=== PATIENT | male | born 1960 | race Caucasian/White ===

== ENCOUNTER 2017-07-28 18:51 | Inpatient (IN) | payer OTHER ==
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
[2017-07-28] MEDS ORDERED: HYDROmorphONE/DILAUDID 2 MG/ML INJ IVP ONE (19:27)
[2017-07-28 19:33] LABS: PLATELET COUNT 262 10^3/uL (150-400)
[2017-07-28] MEDS ORDERED: NS 1,000 ML IV ONE (19:41)
[2017-07-28] MEDS ORDERED: IOPAMIDOL (ISOVUE-300) 100 ML BTL ONE (19:50)
[2017-07-28 19:55] LABS: INR 0.92 (0.83-1.16); PROTIME(PATIENT) 12.6 SEC (12.0-15.0)
[2017-07-28] MEDS ORDERED: TDAP ADULT 0.5 ML INJ (BOOSTRIX) IM ONE (20:58)
[2017-07-28] MEDS ORDERED: ACETAMINOPHEN 500 MG TAB PO ONE (21:17)
[2017-07-28] MEDS ORDERED: LIDOCAINE 4%/MENTHOL 1% PATCH TD ONE (21:18)
[2017-07-28] MEDS ORDERED: KETOROLAC 30 MG/1 ML SDV IVP ONE (21:18)
[2017-07-28] MEDS ORDERED: ONDANSETRON 4 MG/2 ML VIAL IVP PRN (21:43)
--- NOTE | 2017-07-28 21:43 | POSTOPPROG ---
Post Op Note Date of Operation: 07/28/17 Surgeon: Christ Chirinos Anesthesia: Local (Specify), Spinal (1% lidocaine, 8cc) Pre-op Diagnosis: Left Traumatic PTX Post-op Diagnosis: Resolution of PTX Indication: Left Traumatic PTX Procedure: Placement of PTX tube Findings: Resolution of PTX Inf/Abcess present in the surg proc area at time of surgery?: No Complications: none Specimen(s): none
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
--- NOTE | 2017-07-28 22:15 | GOP ---
[f rep st] OPERATIVE REPORT DATE OF OPERATION: 07/28/2017 SURGEON: Christ Chirinos MD PREOPERATIVE DIAGNOSIS: Traumatic left pneumothorax. POSTOPERATIVE DIAGNOSIS: Resolution of traumatic left pneumothorax. PROCEDURE PERFORMED: Placement of pneumothorax tube. FINDINGS: Resolution of left traumatic pneumothorax. INDICATIONS: Left traumatic pneumothorax. DESCRIPTION OF PROCEDURE: Patient was placed in the [facility] in the seated position at 45 degrees. The left chest was carefully clipped, prepped, and draped. The consent had been obtained. A surgic al time-out was carried out. The chest was now prepped and draped. The skin was anesthetized. The entrance was placed more later ally because of the potential need for an incision because of the posterior dislocation of the left c lavicle. The skin was anesthetized with 1% Xylocaine. Deep tissue was anesthetized. Coursing over the top of the 2nd rib, the chest was entered. Lidocaine was squirted into the chest as well. The s kin was incised. The pneumothorax tube was carefully guided into the chest. It was secured at the s kin level with a suture of #2-0 silk. The Heimlich valve was connected to it, and the Heimlich valve was then connected to the Pleur-evac. The chest tube was secured to the chest wall. Medium-sized T egaderm dressings were placed. Followup chest x-ray showed the lung to be completely expanded. The patient tolerated the procedure well. COMPLICATIONS: None. /[id number]/MODL
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
[2017-07-28] MEDS ORDERED: BUPIVACAINE/EPI 0.5% 30 ML SDV ONE (22:25)
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
[2017-07-28] MEDS ORDERED: LR 1,000 ML IV ONE (22:41)
[2017-07-28] MEDS ORDERED: SUCCINYLCHOLINE CHLORIDE 200 MG/10 ML SYR IVP ONE ×2 (22:54→22:57)
[2017-07-28] MEDS ORDERED: DEXAMETHASONE 4 MG/ML VIAL ONE (22:54)
[2017-07-28] MEDS ORDERED: LIDOCAINE 2% 5 ML SDV ONE (22:54)
[2017-07-28] MEDS ORDERED: ROCURONIUM 50 MG/5 ML VIAL ONE (22:54)
[2017-07-28] MEDS ORDERED: PROPOFOL/EMULSION 500 MG/50 ML BOTTLE IV ONE (22:55)
[2017-07-28] MEDS ORDERED: ceFAZolin 2 GM/DEXTROSE 100 ML IV ONE (23:30)
[2017-07-28] MEDS ORDERED: NEOSTIGMINE METHYLSULFATE 10 MG/10 ML MDV ONE (23:47)
--- NOTE | 2017-07-28 23:57 | POSTOPPROG ---
Post Op Note Date of Operation: 07/28/17 Surgeon: Rommel Collier Studio Technician Video Operator: Dr. Chirinos Anesthesia: GET(General Endotracheal) Pre-op Diagnosis: Left sternoclavicular dislocation Post-op Diagnosis: Same Procedure: Closed reduction of Left sternoclavicular dislocation under anesthesia Inf/Abcess present in the surg proc area at time of surgery?: No EBL: None
[2017-07-29] MEDS ORDERED: DIAZEPAM 5 MG/ML 1 ML SYR IVP PRN (00:07)
[2017-07-29] MEDS ORDERED: NALOXONE HCL 0.4 MG/ML INJ IVP PRN (00:07)
[2017-07-29] MEDS ORDERED: oxyCODONE IR 5 MG TAB PO PRN (00:07)
[2017-07-29] MEDS ORDERED: PROMETHAZINE HCL 25 MG/ML INJ IVP PRN (00:07)
--- NOTE | 2017-07-29 00:09 | POSTANESTH ---
Post Anesthetic Evaluation Cardiovascular Status: Normal, Stable Respiratory Status: Normal, Stable Level of Consciousness/Mental Status: Can Participate in Eval, Mildly Sleepy, Arousable Pain Control: Adequate, Prn Tx Ordered Nausea/Vomiting Control: Adequate, Prn Tx Ordered Complications Possibly Related to Anesthesia: None Noted
[2017-07-29] MEDS: ACETAMINOPHEN 500 MG TAB PO SCH ×4 (02:18→22:42)
[2017-07-29] MEDS: CYCLOBENZAPRINE 10 MG TAB PO SCH ×4 (02:19→22:42)
[2017-07-29] MEDS: BACITRACIN ZINC 14.2 GM OINTTUBE TP SCH ×3 (02:19→21:11)
[2017-07-29] MEDS: MIRTAZAPINE 30 MG TAB PO SCH (03:06)
[2017-07-29] MEDS: CHOLECALCIFEROL VIT D3 1,000 UNITS TAB PO SCH (03:12)
[2017-07-29] MEDS: VITAMIN B COMPLEX 1 EA CAP/TAB PO SCH (03:12)
[2017-07-29] MEDS: KETOROLAC 30 MG/1 ML SDV IVP SCH ×4 (06:14→18:09)
[2017-07-29 06:48] LABS: PLATELET COUNT 196 10^3/uL (150-400)
--- NOTE | 2017-07-29 08:09 | PDMN ---
Medical Necessity Medical necessity: MCG M500 pneumothorax- traumatic pneumothorax req CT placement, M545 rib fractures, 3 or more traumatic rib fxs.. A-2 days
[2017-07-29] MEDS ORDERED: PATCH REMOVAL 1 EA PATCH TD SCH (09:00)
--- NOTE | 2017-07-29 09:07 | WOCRNPDOC ---
WOCRN Advanced Assessment Note - Skin Integrity Problem, Advanced Assess Right Elbow Abrasion Dressing Type: Adaptic Touch, Kaci, Non-Bordered Foam (Mepilex) Dressing Description: Not Intact Exudate Amount: Minimal Exudate Color: Reddish/Yellow Exudate Characteristic(s): Serosanguinous, Thick Integumentary Issue Intervention: Visualized Under Dressing Mojgan Wound Swelling: None Wound Bed Color: Villard, Red Wound Bed Constitution: Red/Villard - Non Granular Tissue Site Odor: None Skin Integrity Problem Comment: Visualized under existing dressing. Partial- thickness abrasion noted to R lateral elbow, superficial, no periwound erythema or swelling. Will have nursing apply protective dressing. No need for urologist physician to follow ongoing. Right Anterior Knee Abrasion Dressing Type: Open to Air Exudate Color: Brown Exudate Characteristic(s): Dried Mojgan Wound Tissue: Intact Mojgan Wound Swelling: None Wound Bed Color: Brown, Red Wound Bed Constitution: Red/Villard - Non Granular Tissue, Scab Skin Integrity Problem Comment: Superficial, partial-thickness abrasion noted on R lower proximal leg, mix of scab and smooth, non-granulating tissue. No periwound swelling or erythema. Will have nursing apply protective dressing. No need for Wound RN to follow ongoing. Left Shoulder Abrasion Dressing Type: Open to Air Exudate Amount: None Mojgan Wound Tissue: Intact Mojgan Wound Swelling: None Wound Bed Color: Red Wound Bed Constitution: Red/Villard - Non Granular Tissue, Scab Skin Integrity Problem Comment: Superficial abrasion noted to L posterior shoulder, a mix of scab and non-granulating tissue. Will have nursing apply protective dressing. No need for wound RN to follow.
[2017-07-29] MEDS: PATCH REMOVAL 1 EA PATCH TD SCH (09:10)
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
[2017-07-29] MEDS: HYDROmorphONE/DILAUDID 1 MG/ML INJ IVP PRN ×2 (10:52→16:50)
[2017-07-29] MEDS ORDERED: NS 1,000 ML IV SCH (16:30)
[2017-07-29] MEDS ORDERED: LIDOCAINE 2% JELLY 20 ML (UROJECT) UR ONE (16:30)
--- NOTE | 2017-07-29 19:28 | TRAUMAPNT ---
Trauma Tertiary Progress Note New Findings: No new findings but reduction of posteriorly displaced left sterno -clavicular joint has failed partially Assessment/Plan: POD/PAD#1 Assessment: Pleurovac tube was crimped this am and a small PTX was noted. Suction optimized. F/U CXR in AM Follow up CT of sternoclavicular joint demonstrates partial loss of reduction He had difficulty voiding today. First attempt to place lay was unsuccessful. Second attempt successful Plan: Dr. Collier to review CT and decide if/when to return to surgery for reduction/ fixation F/u CXR re: PTX in AM Subjective: Pain control is acceptable Objective: Vital Signs Temp Pulse Resp BP Pulse Ox 36.9 C 52 L 11 L 97/58 L 96 07/29/17 16:00 07/29/17 16:00 07/29/17 16:00 07/29/17 16:00 07/29/17 16:00 Laboratory Results 07/29/17 06:25 07/29/17 06:25 07/28/17 07/29/17 07/30/17 05:59 05:59 05:59 Intake Total 2100 763 Output Total 0 700 Balance 2100 63 PT 12.6 SEC (12.0-15.0) 07/28/17 18:30 INR 0.92 (0.83-1.16) 07/28/17 18:30 - C-Spine Clearance Cervical Spine Cleared: Yes Provider who Cleared Cervical Spine: Candis Physical Exam - Physical Exam General Appearance: alert, no apparent distress Neck: full range of motion, supple, normal inspection, other (left clavicular head is located posteriorly and is tender) Respiratory: lungs clear, normal breath sounds, respiratory distress Cardiac/Chest: regular rate, rhythm Abdomen: normal bowel sounds, non-tender, soft Male Genitalia: deferred Rectal: deferred Back: Normal inspection Skin: normal color, warm/dry Extremities: other (left upper extremity in immobilizer) Neuro/Psych: no motor/sensory deficits, alert, normal mood/affect, oriented x 3 Time Spent w/Patient (minutes): 25
[2017-07-29] MEDS: LIDOCAINE 4%/MENTHOL 1% PATCH TD SCH (21:12)
--- NOTE | 2017-07-29 23:23 | PDANEPAE ---
ANE Past Medical History - Cardiovascular History Hx Hypertension: No Hx Arrhythmias: No Hx Chest Pain: No Hx Coronary Artery / Peripheral Vascular Disease: No - Pulmonary History Hx COPD: No Hx Asthma/Reactive Airway Disease: No Hx Oxygen in Use at Home: No Hx Sleep Apnea: No Sleep Apnea Screening Result - Last Documented: Negative - Endocrine History Hx Diabetes: No Hypothyroid: No Obesity: no - Neurological & Psychiatric Hx Hx Neurological and Psychiatric Disorders: Yes Neurological / Psychiatric History Comment: depression - GI History GERD: no - Chronic Pain History Chronic Pain: No ANE Review of Systems Review of Systems: ANE Patient History - Allergies Allergies/Adverse Reactions: No Known Allergies Allergy (Unverified 07/28/17 18:55) - Home Medications Home Medications: Cholecalciferol Vit D3 [Vitamin D3 (*)] 1,000 units PO DAILY@39907/28/17 [ Last Taken 07/26/17] Mirtazapine 30 mg PO DAILY@39907/28/17 [Last Taken 07/28/17 04:00] Vitamin B Complex [Vitamin B Complex (OTC)] 1 each PO DAILY@39907/28/17 [Last Taken 07/26/17] - NPO status NPO Since - Liquids (Date): 07/29/17 NPO Since - Liquids (Time): 15:00 NPO Since - Solids (Date): 07/28/17 NPO Since - Solids (Time): 12:00 - Smoking Hx Smoking Status: Never smoked - Alcohol Use Alcohol Use: None ANE Labs/Vital Signs - Labs Result Diagrams: 07/29/17 06:25 07/29/17 06:25 - Vital Signs Blood Pressure: 138/75 Heart Rate: 79 Respiratory Rate: 18 O2 Sat (%): 94 Height: 180.34 cm Weight: 79.379 kg ANE Physical Exam - Airway Neck exam: FROM Mallampati Score: Class 2 Mouth exam: normal dental/mouth exam - Pulmonary Pulmonary: no respiratory distress - Cardiovascular Cardiovascular: regular rate and rhythym - ASA Status ASA Status: II ANE Anesthesia Plan Anesthesia Plan: general endotracheal anesthesia
[2017-07-29] MEDS ORDERED: DEXAMETHASONE 4 MG/ML VIAL ONE (23:24)
[2017-07-29] MEDS ORDERED: LIDOCAINE 2% 100 MG/5 ML SYR ONE (23:24)
[2017-07-29] MEDS ORDERED: MIDAZOLAM 2 MG/2 ML VIAL ONE (23:24)
[2017-07-29] MEDS ORDERED: ROCURONIUM 100 MG/10 ML VIAL ONE (23:24)
[2017-07-29] MEDS ORDERED: PROPOFOL 200 MG/20 ML VIAL ONE (23:24)
[2017-07-29] MEDS ORDERED: METOCLOPRAMIDE 10 MG/2 ML VIAL ONE (23:24)
[2017-07-30] MEDS ORDERED: ceFAZolin 1 GM VIAL ONE ×2 (00:07)
[2017-07-30] MEDS: KETOROLAC 30 MG/1 ML SDV IVP SCH ×4 (00:18→17:30)
[2017-07-30] MEDS ORDERED: SUGAMMADEX SODIUM 200 MG/2 ML VIAL IVP ONE (01:19)
[2017-07-30] MEDS ORDERED: BACITRACIN ZINC 14.2 GM OINTTUBE TP ONE (01:21)
[2017-07-30] MEDS ORDERED: NALOXONE HCL 0.4 MG/ML INJ IVP PRN (02:15)
[2017-07-30] MEDS ORDERED: ALBUTEROL 3 ML DEYVIAL IH PRN (02:15)
[2017-07-30] MEDS ORDERED: ONDANSETRON 4 MG/2 ML VIAL IVP PRN (02:15)
[2017-07-30] MEDS ORDERED: fentaNYL 100 MCG/2 ML INJ IVP PRN (02:15)
--- NOTE | 2017-07-30 02:16 | POSTANESTH ---
Post Anesthetic Evaluation Cardiovascular Status: Similar to Pre-Op Cond Respiratory Status: Similar to Pre-op Cond. Level of Consciousness/Mental Status: Mildly Sleepy, Arousable, Moderately Sleepy Pain Control: Adequate, Prn Tx Ordered Nausea/Vomiting Control: Adequate, Prn Tx Ordered Complications Possibly Related to Anesthesia: None Noted
[2017-07-30] MEDS: MIRTAZAPINE 30 MG TAB PO SCH ×2 (05:39→06:07)
[2017-07-30] MEDS: ACETAMINOPHEN 500 MG TAB PO SCH ×3 (05:40→21:40)
[2017-07-30] MEDS: CHOLECALCIFEROL VIT D3 1,000 UNITS TAB PO SCH ×2 (05:40→06:06)
[2017-07-30] MEDS: VITAMIN B COMPLEX 1 EA CAP/TAB PO SCH ×2 (05:40→06:07)
[2017-07-30] MEDS: BACITRACIN ZINC 14.2 GM OINTTUBE TP SCH ×2 (09:07→21:41)
[2017-07-30] MEDS: CYCLOBENZAPRINE 10 MG TAB PO SCH ×3 (09:13→21:40)
[2017-07-30] MEDS: PATCH REMOVAL 1 EA PATCH TD SCH (09:16)
[2017-07-30] MEDS ORDERED: oxyCODONE IR 5 MG TAB PO PRN (12:14)
--- NOTE | 2017-07-30 14:17 | ASMTCMCOM ---
CM Note CM Note Notes: Patient went for surgical procedure today. Therapies are recommending home care depending on how patient does today. CM will follow. Date Signed: 07/30/2017 02:16 PM Electronically Signed By:Avis Suarez LCSW
[2017-07-30] MEDS ORDERED: BISACODYL 10 MG SUPP PR PRN (14:22)
[2017-07-30] MEDS ORDERED: POLYETHYLENE GLYCOL 3350 17 GM PKT PO PRN (14:22)
[2017-07-30] MEDS ORDERED: MAGNESIUM HYDROXIDE 30 ML UDCUP PO PRN (14:22)
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
[2017-07-30] MEDS: SENNOSIDES/DOCUSATE SODIUM TAB PO SCH (21:38)
[2017-07-30] MEDS: LIDOCAINE 4%/MENTHOL 1% PATCH TD SCH (21:38)
[2017-07-31] MEDS: KETOROLAC 30 MG/1 ML SDV IVP SCH ×4 (00:09→17:45)
[2017-07-31] MEDS: MIRTAZAPINE 30 MG TAB PO SCH (05:53)
[2017-07-31] MEDS: ACETAMINOPHEN 500 MG TAB PO SCH ×3 (05:53→21:47)
[2017-07-31] MEDS: VITAMIN B COMPLEX 1 EA CAP/TAB PO SCH (05:53)
[2017-07-31] MEDS: CHOLECALCIFEROL VIT D3 1,000 UNITS TAB PO SCH (05:53)
[2017-07-31] MEDS ORDERED: HYDROmorphONE/DILAUDID 2 MG TAB PO PRN (09:42)
--- NOTE | 2017-07-31 09:47 | TRAUMAPN ---
Trauma Progress Note Assessment/Plan: POD/PAD#1 Assessment: Pleurovac tube was crimped this am and a small PTX was noted. Suction optimized. F/U CXR in AM Follow up CT of sternoclavicular joint demonstrates partial loss of reduction He had difficulty voiding today. First attempt to place lay was unsuccessful. Second attempt successful Plan: Dr. Collier to review CT and decide if/when to return to surgery for reduction/ fixation F/u CXR re: PTX in AM PAD/POD# 3,2&3 Assessment: Doing well, need to remove Lay, PTX trace Plan: Home in next 24 hours Subjective: No stool yet Objective: Vital Signs Temp Pulse Resp BP Pulse Ox 36.4 C 73 10 L 131/84 H 95 07/31/17 07:46 07/31/17 07:46 07/31/17 05:47 07/31/17 07:46 07/31/17 07:46 Laboratory Results 07/29/17 06:25 07/29/17 06:25 07/30/17 07/31/17 08/01/17 05:59 05:59 05:59 Intake Total 1763 1375 Output Total 1170 1100 Balance 593 275 PT 12.6 SEC (12.0-15.0) 07/28/17 18:30 INR 0.92 (0.83-1.16) 07/28/17 18:30 - C-Spine Clearance Cervical Spine Cleared: Yes Provider who Cleared Cervical Spine: Candis Physical Exam - Physical Exam General Appearance: WD/WN, alert, mild distress Neck: non-tender, supple Respiratory: lungs clear, normal breath sounds Cardiac/Chest: regular rate, rhythm Abdomen: non-tender, soft Male Genitalia: deferred Rectal: deferred Back: Normal inspection Skin: normal color, warm/dry Extremities: other (wearing left shoulder immobolizer) Neuro/Psych: no motor/sensory deficits, alert
[2017-07-31] MEDS: CYCLOBENZAPRINE 10 MG TAB PO SCH ×3 (10:15→21:47)
[2017-07-31] MEDS: SENNOSIDES/DOCUSATE SODIUM TAB PO SCH ×2 (10:15→21:47)
[2017-07-31] MEDS: PATCH REMOVAL 1 EA PATCH TD SCH (11:08)
[2017-07-31] MEDS: BACITRACIN ZINC 14.2 GM OINTTUBE TP SCH ×2 (11:08→23:58)
[2017-07-31] MEDS: LIDOCAINE 4%/MENTHOL 1% PATCH TD SCH (23:59)
[2017-08-01] MEDS: KETOROLAC 30 MG/1 ML SDV IVP SCH ×3 (00:25→13:13)
[2017-08-01] MEDS: MIRTAZAPINE 30 MG TAB PO SCH (04:56)
[2017-08-01] MEDS: CHOLECALCIFEROL VIT D3 1,000 UNITS TAB PO SCH (04:56)
[2017-08-01] MEDS: VITAMIN B COMPLEX 1 EA CAP/TAB PO SCH (04:56)
[2017-08-01] MEDS: ACETAMINOPHEN 500 MG TAB PO SCH ×2 (05:53→14:10)
[2017-08-01] MEDS: SENNOSIDES/DOCUSATE SODIUM TAB PO SCH (08:32)
[2017-08-01] MEDS: CYCLOBENZAPRINE 10 MG TAB PO SCH ×2 (08:32→18:25)
[2017-08-01] MEDS: BACITRACIN ZINC 14.2 GM OINTTUBE TP SCH (08:39)
[2017-08-01] MEDS: PATCH REMOVAL 1 EA PATCH TD SCH (10:29)
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
[2017-08-01 15:41] VITALS: BP 138/89
--- NOTE | 2017-08-01 16:24 | ASMTCMCOM ---
CM Note CM Note Notes: 08/01/2017 Case Management Note Reviewed chart. PT is recommending outpatient rehab. PT eval states that pt safe to go home with family support. Case Management d/c poc: home with family support attending outpatient rehab. Case Management available for any further d/c needs. Date Signed: 08/01/2017 04:24 PM Electronically Signed By:Padmini Bansal RN
--- NOTE | 2017-08-01 16:37 | TRAUMAPN ---
Trauma Progress Note Assessment/Plan: POD/PAD#1 Assessment: Pleurovac tube was crimped this am and a small PTX was noted. Suction optimized. F/U CXR in AM Follow up CT of sternoclavicular joint demonstrates partial loss of reduction He had difficulty voiding today. First attempt to place lay was unsuccessful. Second attempt successful Plan: Dr. Collier to review CT and decide if/when to return to surgery for reduction/ fixation F/u CXR re: PTX in AM PAD/POD# 3,2&3 Assessment: Doing well, need to remove Lay, PTX trace Plan: Home in next 24 hours PAD#4 POD#3&4 Assessment: Doing welll, F/u CT shows tiny apical PTX and adequate reduction of sterno- clavicular joint dislocation. Plan: Home today Subjective: I feel great Objective: Vital Signs Temp Pulse Resp BP Pulse Ox 37.2 C 69 16 138/89 H 97 08/01/17 15:40 08/01/17 15:40 08/01/17 15:40 08/01/17 15:40 08/01/17 15:40 Laboratory Results 07/29/17 06:25 07/29/17 06:25 07/31/17 08/01/17 08/02/17 05:59 05:59 05:59 Intake Total 1375 1250 850 Output Total 1100 1750 450 Balance 275 -500 400 PT 12.6 SEC (12.0-15.0) 07/28/17 18:30 INR 0.92 (0.83-1.16) 07/28/17 18:30 - C-Spine Clearance Cervical Spine Cleared: Yes Provider who Cleared Cervical Spine: Candis Physical Exam - Physical Exam General Appearance: WD/WN, alert, no apparent distress Respiratory: chest non-tender, lungs clear, normal breath sounds Cardiac/Chest: regular rate, rhythm Abdomen: normal bowel sounds, non-tender, soft Male Genitalia: deferred Rectal: deferred Back: Normal inspection Skin: normal color, warm/dry Extremities: normal range of motion, non-tender, normal inspection, other (Left arm in sling) Neuro/Psych: no motor/sensory deficits, alert, normal mood/affect, oriented x 3
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
--- NOTE | 2017-08-01 17:11 | GOP ---
[f rep st] OPERATIVE REPORT DATE OF OPERATION: 07/28/2017 SURGEON: Christ Chirinos MD PREOPERATIVE DIAGNOSIS: Left sternal clavicular joint closed dislocation. POSTOPERATIVE DIAGNOSIS: Left sternal clavicular joint closed dislocation. PROCEDURE PERFORMED: Closed reduction. I was asked to be present and stand by for the closed reduction in case there was a vascular injury. I participated in the case by helping supply traction. Please see Dr. Collier's complete dictation. FINDINGS: DESCRIPTION OF PROCEDURE: ATTENDING: Rommel Collier MD. CO-SURGEON: Christ Chirinos MD. /[id number]/MODL MTDD
--- NOTE | 2017-08-01 17:11 | GOP ---
[f rep st] OPERATIVE REPORT DATE OF OPERATION: 07/29/2017 SURGEON: Christ Chirinos MD PREOPERATIVE DIAGNOSIS: Recurrent dislocation, left sternoclavicular joint. POSTOPERATIVE DIAGNOSIS: Recurrent dislocation, left sternoclavicular joint. PROCEDURE PERFORMED: Open reduction and internal fixation of left sternoclavicular joint. This had been reduced on the prior day, but it re-dislocated. Dr. Collier asked me to assist him in surgery in case there was a vascular injury. Please see his dictation for the complete procedure, but I assisted in the open reduction and fixation. FINDINGS: re-dislocation of the sterno-clavicular joint DESCRIPTION OF PROCEDURE: ATTENDING: Rommel Collier MD. CO-SURGEON: Christ Chirinos MD. /[id number]/MODL MTDD
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
--- NOTE | 2017-08-01 17:13 | ASMTLACE ---
[facility] Length of stay for Answers: 3 days current admission Acuity / Level of Answers: Yes Care: Did the patient have an inpatient admission? Comorbidities - select Answers: Other Notes: Rib fracture, clavicle all that apply dislocation # of Emergency department Answers: 1-2 visits in the last 6 months Score: 8 Date Signed: 08/01/2017 05:12 PM Electronically Signed By:Padmini Bansal RN
== END 2017-08-01 18:25 | disposition home or self-care (01) | DRG 982 ==
LOC: EDUNIT# → UNDOADMOB 21:25 → OBSVTOIN 21:25 → F2N 07-29 01:12 → F3N 07-31 14:19
PROVIDERS: ADMIT Surgery; ATTEND Surgery
PROC: BP1 Imaging, Non-Axial Upper Bones, Fluoroscopy (ICD-10-PCS; 2017-07-28)
PROC: 0RSFXZZ Reposition Left Sternoclavicular Joint, External Approach (ICD-10-PCS; 2017-07-28)
PROC: 0W9B30Z Drainage of Left Pleural Cavity with Drainage Device, Percutaneous Approach (ICD-10-PCS; 2017-07-28)
PROC: 0MQ30ZZ Repair Right Elbow Bursa and Ligament, Open Approach (ICD-10-PCS; principal; 2017-07-29 22:45)
PROC: B31J1ZZ Fluoroscopy of Left Upper Extremity Arteries using Low Osmolar Contrast (ICD-10-PCS; principal; 2017-07-29 22:45)
PROC: 0RS Upper Joints, Reposition (ICD-10-PCS; principal; 2017-07-29 22:45)
DX: S43.225A Posterior dislocation of left sternoclavicular joint, initial encounter (principal); S27.0XXA Traumatic pneumothorax, initial encounter; S22.42XA Multiple fractures of ribs, left side, initial encounter for closed fracture; S43.82XA Sprain of other specified parts of left shoulder girdle, initial encounter; S50.311A Abrasion of right elbow, initial encounter; S80.211A Abrasion, right knee, initial encounter; S40.212A Abrasion of left shoulder, initial encounter; V17.0XXA Pedal cycle driver injured in collision with fixed or stationary object in nontraffic accident, initial encounter; Y93.55 Activity, bike riding; Y92.482 Bike path as the place of occurrence of the external cause; Y99.8 Other external cause status; F32.9 Major depressive disorder, single episode, unspecified; D18.03 Hemangioma of intra-abdominal structures; Z87.891 Personal history of nicotine dependence
CPT/HCPCS: 92523-GN; 96374; 97116-GP; 97161-GP; 97165-GO; 97530-GP; 97535-GO; G0480; J0330; J0690; J1100; J1170; J1885; J2001; J2250; J2270; J2704; J2765; Q9967